=== PATIENT | female | born 1980 | race Caucasian/White ===

== ENCOUNTER 2022-11-24 08:34 | Outpatient (CLI) | payer OTHER ==
--- NOTE | 2022-11-24 12:25 | Mammography Report ---
BILATERAL DIGITAL SCREENING MAMMOGRAM 3D/2D: 11/24/2022 CLINICAL: Baseline exam. Routine screening. No prior exams were available for comparison. Both breasts are heterogeneously dense, which may obscure small masses (category c / 51-75% glandular tissue). No significant masses, calcifications, or other findings are seen in either breast. IMPRESSION: NEGATIVE There is no mammographic evidence of malignancy. A 1 year screening mammogram is recommended. Based on the Tyrer Cuzick model (a risk assessment model) the patients lifetime risk is 15.1% and he r 10 year risk is 2.5%. According to the ACR, ACS, and NCCN guidelines, an annual breast MRI exam ton ng with mammogram is recommended if the patients lifetime risk is 20% or greater. This exam was interpreted at Station ID: [id number]. NOTE: For mammograms, a report in lay terms will be sent to the patient. Approximately 15% of breast malignancies will not be visualized mammographically. In the management of a palpable breast mass, a negative mammogram must not discourage biopsy of a clinically suspicious lesion. Electronically Signed By: José elizabeth/[email or web address]:11/24/2022 10:16:42 letter sent: No_Letter ACR BI-RADS Category 1: Negative 3341F PARENCHYMAL PATTERN: (D) - The breast(s) demonstrate(s) heterogeneously dense fibroglandular paremmay andi. BI-RADS CATEGORY: (1) - 1 Mammogram [id number] 1 year screening LATERALITY: (B)
== END 2022-11-24 08:35 | disposition home or self-care (01) ==
LOC: DI 08:34
DX: Z12.31 Encounter for screening mammogram for malignant neoplasm of breast (principal)

== ENCOUNTER 2022-11-24 09:08 | Outpatient (CLI) | payer OTHER ==
--- NOTE | 2022-11-24 13:47 | XRAY Report ---
PROCEDURE: Foot 3 View BILAT INDICATIONS: [id number] TECHNIQUE: 3 views of each foot were acquired. COMPARISON: None. FINDINGS: Bones: In the right foot, there is no acute osseous abnormality. Bony alignment is normal. Small plantar kj caneal enthesophyte. No significant degenerative changes. In the left foot, there is no acute osseous abnormality. Bony alignment is normal. Small plantar calc aneal enthesophyte. No significant degenerative changes. Soft tissues: No suspicious soft tissue calcifications or masses. IMPRESSION: No acute osseous abnormality. No significant degeneration in the bilateral feet. Reviewed by: Lali Garcia MD on 11/24/2022 1:46 PM PDT Approved by: Lali Garcia MD on 11/24/2022 1:46 PM PDT Station ID: [id number]
== END 2022-11-24 09:09 | disposition home or self-care (01) ==
LOC: DI 09:08
PROVIDERS: ATTEND Physician Assistant
DX: M79.671 Pain in right foot (principal); M79.672 Pain in left foot

== ENCOUNTER 2022-12-01 07:31 | Outpatient (CLI) | payer OTHER ==
[2022-12-01 12:02] LABS: BASOPHILS # (AUTO) 0.1 10^3/uL (0.0-0.1); BASOPHILS % (AUTO) 1.4 %; EOSINOPHILS # (AUTO) 0.1 10^3/uL (0.0-0.7); EOSINOPHILS % (AUTO) 1.5 %; HCT - HEMATOCRIT 41.4 % (37.0-47.0); HGB - HEMOGLOBIN 13.8 g/dL (12.0-16.0); LYMPHOCYTES # (AUTO) 2.2 10^3/uL (1.5-3.5); LYMPHOCYTES % (AUTO) 37.3 %; MEAN CORPUSCULAR HEMOGLOBIN 31.9 pg (27.0-31.0); MEAN CORPUSCULAR HGB CONC 33.3 g/dL (32.0-36.0); MEAN CORPUSCULAR VOLUME 95.8 fL (81.0-99.0); MEAN PLATELET VOLUME 11.2 fL (7.9-10.8); MONOCYTES # (AUTO) 0.5 10^3/uL (0.0-1.0); MONOCYTES % (AUTO) 7.9 %; NEUTROPHILS % (AUTO) 51.7 %; PLT - PLATELET COUNT 257 10^3/uL (130-450); RED BLOOD COUNT 4.32 10^6/uL (4.20-5.40); RED CELL DISTRIBUTION WIDTH 12.3 % (12.0-15.0); WHITE BLOOD COUNT 5.8 x10^3/uL (4.8-10.8)
[2022-12-01 12:33] LABS: % IRON SATURATION 29 % (20-50); ALBUMIN 4.4 g/dL (3.2-5.5); ALBUMIN/GLOBULIN RATIO 1.5 (1.0-2.2); ALKALINE PHOSPHATASE 101 IU/L (42-121); ALT ALANINE AMINOTRANSFERASE 15 IU/L (10-60); AST ASPARTATE AMINOTRANSFERASE 18 IU/L (10-42); BILIRUBIN,TOTAL 0.6 mg/dL (0.2-1.0); BUN - BLOOD UREA NITROGEN 12 mg/dL (6-20); CALCIUM 10.1 mg/dL (8.5-10.3); CARBON DIOXIDE - CO2 28 mmol/L (21-32); CHLORIDE 105 mmol/L (101-111); CHOL/HDL RATIO 2.5 (<4.4); CHOLESTEROL 249 mg/dL; CREATININE 0.6 mg/dL (0.6-1.3); GFR - MDRD 109 (>89); GLUCOSE 97 mg/dL (74-104); HDL CHOLESTEROL 98 mg/dL; IRON 123 ug/dL (50-212); LDL CHOLESTEROL,CALCULATED 124 mg/dL; LDL/HDL RATIO 1.3 (<4.4); POTASSIUM 4.3 mmol/L (3.5-4.5); SODIUM 138 mmol/L (135-145); TOTAL IRON BINDING CAPACITY 426 ug/dL (250-450); TOTAL PROTEIN 7.4 g/dL (6.4-8.9); TRANSFERRIN 304 mg/dL (203-362); TRIGLYCERIDES 136 mg/dL (48-352); VLDL CHOLESTEROL 27 mg/dL
[2022-12-01 12:45] LABS: THYROID STIMULATING HORMONE 3.64 uIU/mL (0.34-5.60)
[2022-12-01 12:52] LABS: FERRITIN 45.7 ng/mL (11.0-306.8)
[2022-12-01 12:53] LABS: PROLACTIN 9.19 ng/mL
[2022-12-02 06:11] LABS: ESTRADIOL <5.0 pg/mL (.)
[2022-12-02 08:10] LABS: VITAMIN D 25-HYDROXY 39.5 ng/mL (30.0-100.0)
== END 2022-12-01 07:32 | disposition home or self-care (01) ==
LOC: LAB.N 07:31
PROVIDERS: ATTEND Physician Assistant
DX: Z13.9 Encounter for screening, unspecified (principal); Z98.84 Bariatric surgery status; E55.9 Vitamin D deficiency, unspecified; E53.8 Deficiency of other specified B group vitamins; N91.2 Amenorrhea, unspecified; D50.9 Iron deficiency anemia, unspecified
CPT/HCPCS: 36415; 80050; 80061; 82306; 82607; 82670; 82728; 83001; 83540; 83721; 84146; 84466